=== PATIENT | female | born 1960 | race Native Hawaiian/Other Pacific Islander ===

== ENCOUNTER 2018-07-06 10:27 | Day surgery (SDC) | payer MEDICARE, MEDICAID ==
[~2018-07-06] VITALS: Ht 165.1 cm; Wt 79.1 kg
[2018-07-06] VITALS (7 sets, daily range): BP systolic 106–134; BP diastolic 59–96; PULSE 92–102; TEMP 97.1–98.2
[2018-07-06] MEDS ORDERED: CYMBALTA 30MG30 MG PO (11:12)
[2018-07-06] MEDS ORDERED: CYMBALTA 60MG60 MG PO (11:13)
[2018-07-06] MEDS ORDERED: K-DUR 10 MEQ T10 MEQ PO (11:13)
[2018-07-06] MEDS ORDERED: LIPITOR 10MG10 MG PO (11:14)
[2018-07-06] MEDS ORDERED: NEURONTIN300 MG/CAP PO (11:15)
[2018-07-06] MEDS ORDERED: KLONOPIN 1MG1 MG PO (11:16)
[2018-07-06] MEDS ORDERED: DESYREL 100MG100 MG PO (11:17)
[2018-07-06] MEDS ORDERED: SEROQUEL400 MG PO (11:18)
[2018-07-06] MEDS ORDERED: SEROQUEL 200MG200 MG PO (11:18)
[2018-07-06] MEDS ORDERED: VENTOLIN0.09 MG IH (11:18)
[2018-07-06] MEDS ORDERED: MOTRIN 600600 MG/TAB PO (14:10)
[2018-07-06] MEDS ORDERED: COLACE 100100 MG/CAP PO (14:10)
[2018-07-06] MEDS ORDERED: NORCO 325 MG-101 TAB PO (14:11)
== END 2018-07-06 17:10 | disposition home or self-care (01) ==
LOC: SDCO 10:27
DX: K80.10 Calculus of gallbladder with chronic cholecystitis without obstruction (principal); J44.9 Chronic obstructive pulmonary disease, unspecified; G89.29 Other chronic pain; M79.7 Fibromyalgia; J18.1 Lobar pneumonia, unspecified organism; N87.1 Moderate cervical dysplasia; E78.00 Pure hypercholesterolemia, unspecified; F17.210 Nicotine dependence, cigarettes, uncomplicated; K21.9 Gastro-esophageal reflux disease without esophagitis; F43.10 Post-traumatic stress disorder, unspecified; F41.9 Anxiety disorder, unspecified; F31.9 Bipolar disorder, unspecified; Z88.5 Allergy status to narcotic agent; Z86.73 Personal history of transient ischemic attack (TIA), and cerebral infarction without residual deficits; Z82.49 Family history of ischemic heart disease and other diseases of the circulatory system; Z83.79 Family history of other diseases of the digestive system; Z82.0 Family history of epilepsy and other diseases of the nervous system
CPT/HCPCS: J0690; J1100; J2405; J2704; J2710; J3010; J7120; Q9967